=== PATIENT | male | born 1975 | race Caucasian/White ===

== ENCOUNTER 2025-08-01 12:45 | Emergency (ER) | payer OTHER, SELFPAY ==
[2025-08-01 12:47] VITALS: BP 111/70
--- NOTE | 2025-08-01 13:38 | ED.SKININJ ---
HPI-Injury
General
Chief Complaint: Skin Surface Trauma
Source: patient
Exam Limitations: none
Time Seen by Provider: 08/01/25 13:03
Nursing documentation reviewed up to this point in time: agreed with
History of Present Illness-Injury
Initial Injury comments:
49-year-old male with no past medical history states he was walking into his garage, the garage door was lower than usual and he struck his forehead causing him to stumble backwards, he had a coffee mug in his hand and when he fell the coffee mug
broke and lacerated his left hand palm. He believes his tetanus immunization is date, he will check with his doctor. He denies any major head injury, no loss of conscious, no headache.
Past History
Past History
ED Past Medical History: None
Social History
Tobacco: Non-smoker
Alcohol: None
Personal:
Living: with family
Employment: Employed
Review of Systems
Review of Systems
Allergies reviewed?: Yes
All Other Systems: ROS reviewed and negative except as documented in HPI and ROS
Skin Exam
Laceration
Left hand palm thenar eminence:
Length in cm: 1.5
Orientation: diagonal
Type of Laceration: simple
Any active bleeding?: low grade venous oozing
Distal skin color and temperature: normal-warm & good color
Normal distal neurovascular exam: Yes
Range of motion: full
Phy Exam
Physical Exam
Physical Exam:
PHYSICAL EXAMINATION:
General: no apparent distress, not acutely ill
Neuro: alert and oriented.
Psychiatric: well kept. interactive and cooperative
Musculoskeletal: Moves with ease.
Skin: Warm, pink.
Course
Vital Signs
Initial and Last Documented VS:
Initial Vital Signs
Pulse Resp BP Pulse Ox
69 18 111/70 98
08/01/25 12:47 08/01/25 12:47 08/01/25 12:47 08/01/25 12:47
Last Documented Vital Signs
Pulse Resp BP Pulse Ox
69 18 111/70 98
08/01/25 12:47 08/01/25 12:47 08/01/25 12:47 08/01/25 13:43
Procedures
Laceration Closure
Left hand palm thenar eminence:
Status of Wound: clean
Size of Wound in cm: 1.5
Description of Wound Edges: sharp
Preparation: cleaned with saline
Anesthesia: 1% Lidocaine with epi
Revision/Debridement: routine- no revision
Wound exploration: no tendon involvement
Type of Closure: single layer closure
Skin Closure Material: 4-0 prolene
Number of sutures: 4
Additional information:
Antibiotic ointment, nonstick and gauze dressing applied.
MDM/Problems Addressed
MDM/Problems Addressed:
49-year-old male with no past medical history states he was walking into his garage, the garage door was lower than usual and he struck his forehead causing him to stumble backwards, he had a coffee mug in his hand and when he fell the coffee mug
broke and lacerated his left hand palm. He believes his tetanus immunization is date, he will check with his doctor. He denies any major head injury, no loss of conscious, no headache.
Laceration left palm sutured, antibiotic ointment and nonstick and gauze dressing applied.
*Pulse Oximetry
SaO2: 98
Oxygen Mode of Delivery: Room air
Patient hypoxic: not evaluated
*Critical Care Note
Total Time (30-74mins, 75-104mins- exclusive of procedures): Not Applicable
ED Attending Note
-
Portions of this chart may have been created with voice recognition software.� Occasional wrong word or��sound alike� substitutions may have occurred due to the inherent limitations of voice recognition software.
Discharge Plan
Departure
Patient Disposition: Home (Routine Discharge)
Date of Disposition: 08/01/25
Time of Disposition: 13:43
Patient with high blood pressure during this ER visit?: No
Condition: Good
Discharge Problem:
Laceration of left palm, Fall from slip, trip, or stumble
Instructions: Wound Care (DC), Laceration Repair With Stitches (DC)
Referrals:
Piter Beckett MD [Family Provider, Internal Medicine] - Call in 1-3 days for appt
Activity Restrictions/Additional Instructions:
As we discussed, elevating the hand slightly higher than your heart may minimize throbbing pains. Tylenol or ibuprofen as needed for pain
Wash the hand daily with soap and water, dry well, apply antibiotic ointment and fresh Band-Aid daily.
Seek medical care immediately for signs of infection which may include increasing redness, pain, swelling, pus drainage, red streaks up the arm
Have the sutures removed in 10 to 14 days
Interventions
Interventions:
*Risk Screen - Suicide Last Done: 08/01/25 12:47
*General Assessment Last Done: 08/01/25 12:47
*Neglect/Abuse Screening Last Done: 08/01/25 12:47
*ED COVID-19 Vaccine History Last Done: 08/01/25 13:40
*ED Influenza Vaccine History Last Done: 08/01/25 13:40
*Nursing Disposition Last Done: 08/01/25 13:56
ED-Skin Assessment Last Done: 08/01/25 13:40
Discharge Date and Time
Discharge Date/Time: 08/01/25 13:57
Print Language: BHUTANESE
== END 2025-08-01 13:57 | disposition home or self-care (01) ==
LOC: EMR 12:45
PROVIDERS: EMERGENCY PHYSICIAN Emergency Medicine; FAMILY PHYSICIAN Internal Medicine Sports Medicine
DX: S61.412A Laceration without foreign body of left hand, initial encounter (principal); W01.198A Fall on same level from slipping, tripping and stumbling with subsequent striking against other object, initial encounter; Y93.01 Activity, walking, marching and hiking
CPT/HCPCS: 99282; 12001